=== PATIENT | female | born 1990 ===

== ENCOUNTER 2019-09-20 19:49 | Inpatient (IN) | payer MEDICAID, SELFPAY ==
[2019-09-20] MEDS ORDERED: Ibuprofen 800 MG TAB PO PRN (19:55)
[2019-09-20] MEDS ORDERED: Carboprost 250 MCG/ML AMP IM PRN (19:55)
[2019-09-20] MEDS ORDERED: Docusate 100 MG CAP PO PRN (19:55)
[2019-09-20] MEDS ORDERED: Misoprostol 200 MCG TAB PR PRN (19:55)
[2019-09-20] MEDS ORDERED: Lidocaine 1% (PF) 30 ML VIAL SC PRN (19:55)
[2019-09-20] MEDS ORDERED: Ondansetron PF 4 MG/2 ML Vial IVP PRN (19:55)
[2019-09-20] MEDS ORDERED: Promethazine HCl 25 MG/ML VIAL IM PRN (19:55)
[2019-09-20] MEDS ORDERED: Acetaminophen 500 MG TAB PO PRN (19:55)
[2019-09-20] MEDS ORDERED: hydrALAZINE 20 MG/ML VIAL SLOW IVP PRN ×2 (19:55→23:31)
[2019-09-20] MEDS ORDERED: Methylergonovine 0.2 MG/ML VIAL IM PRN (19:55)
[2019-09-20] MEDS ORDERED: Lactated Ringer's 1,000 ML IV SCH (20:00)
--- NOTE | 2019-09-20 20:05 | PDOC.FPROB ---
FMR OB H&P: HPI - History of Present Illness Chief Complaint: Contractions History of Present Illness: 29 yo @ 38.6 wks by LMP c/w 18.3 wk US who presents with contractions. She said the contractions started around 3 am this morning. She was seen by Dr. Negro at [facility] this morning and found to be a 4. She had one pressure in the 130s. She says the contractions are suprapubic and in her back and they began to worsen around 1630 this afternoon, so she decided to come to the hospital. Primary Care Physician: [facility]- Dr. Braun FMR OB H&P: Current - Care : 4 Para: 3 Gestational age: 38.6 Due date: 09/27/2019 Dating Criteria: LMP c/w 18.3 wk US - OB Labs Blood type: O RH: positive Antibody Screen: negative HIV: negative RPR: negative HepBsAg: negative Rubella: immune Gonorrhea: negative Chlamydia: negative 1 hour gtt: 97 GBS: negative H&H: 11. Platelets: 200 FMR OB H&P: History - Past Medical History PMH: None - OB History OB History: 3 - all term, 1st had mec, 3rd post date induction - NURSE OBGYN History NURSE OBGYN History: NILM Pap on 04/23/19 - Surgical History Sx History: None - Social History Social History: No alcohol, tobacco, or recreational drugs. - Family History Family History: None FMR OB H&P: Medications - Current Allergies/Adverse Reactions: Allergies Allergy/AdvReac Type Severity Reaction Status Date / Time No Known Allergies Allergy Verified 09/20/19 20:15 FMR OB H&P: ROS - Review of Systems General: denies: fever/chills Eyes: denies: vision changes ENT: denies: nasal congestion, rhinorrhea, sore throat Cardiovascular: denies: chest pain, edema Respiratory: denies: cough, congestion, shortness of breath Gastrointestinal: reports: abdominal pain (suprapubic pain). denies: nausea, vomiting, diarrhea, constipation Genitourinary (Female): reports: contractions. denies: dysuria, vaginal discharge, vaginal bleeding Musculoskeletal: denies: pain, tenderness Neurologic: denies: numbness, weakness Integumentary: denies: itching, rash Hematologic/Lymphatic: denies: prolonged or excessive bleeding, enlarged lymph nodes FMR OB H&P: Vital Signs - Maternal Vital signs: BP: 122/75, T: 98.2 - Heart Tones Baseline: 140 Variability: moderate Acceleration: present Deceleration: absent Category: category 1 [place] contractions every: 2-3 minutes FMR OB H&P: Physical Exam - Physical Exam General: NAD HEENT: normocephalic and atraumatic, PERRLA, EOMI, no scleral icterus Neck: supple, no LAD Heart: RRR, normal S1/S2, no murmurs/rubs/gallops, pulses present, no edema General: CTAB, no respiratory distress, good air movement, no rales/rhonchi, no wheezing, no retractions Abdomen: soft, gravid, non-tender, bowel sound present Musculoskeletal: pulses present, FROM in all four extremities Neurological: cranial nerves II through XII intact, no focal deficit Skin: no rash, no jaundice Lymphatic: no unusual bruising or bleeding, no purpura, no petechia Psychiatric: normal mood and affect - Pelvic Exam Vulva: normal hair distribution, no lesions, no discharge, no blood SVE: 7100/0 Presentation: MAMI FMR OB H&P: A/P - Problem List (1) Current Visit: Yes Status: Acute Disposition: 29 yo @ 38.6 wks by LMP c/w 18.3 wk US who presents with contractions. 1. Term @ 38.6 * Will admit for labor * SVE * Initial: 6100/-1 @ 1905 * 7100/0 * AROM @ 1955 with clear fluid * LR @ 125 * Pt does not desire epidural * strip: 140s, accels, mod variability * NPO with ice chips for delivery * Labs ordered Dispo: Continue serial cervical exams. Anticipate delivery soon. Discussion: Date/Time: 09/20/192002 This H&P was discussed with [] and [] who agree with the above documentation and plan. Addendum - Attending - Attending Attestation Date/Time: 09/20/192022 I personally evaluated the patient and discussed the management with Dr. Duff. I agree with the History, Examination, Assessment and Plan documented above.
[2019-09-20 20:19] VITALS: BMI 26.5
[2019-09-20 20:19] LABS: Hemoglobin 12.4 g/dL (12.0-16.0); Mean Corpuscular HGB CONC 33.6 g/dL (32.0-36.0); Mean Corpuscular Hemoglobin 25.8 pg (27.0-31.0); Mean Corpuscular Volume 76.8 fL (78.0-98.0); Mean Platelet Volume 12.4 fL (7.4-10.4); Platelet Count 146 thou/uL (130-400); RBC Distribution Width 15.2 % (11.5-14.5); Red Blood Cell (RBC) Count 4.79 mill/uL (4.20-5.40); White Blood Cell (WBC) Count 8.1 thou/uL (4.8-10.8)
[2019-09-20 20:57] LABS: Syphilis Antibody Nonreactive (Nonreactive); Syphilis Antibody Index 0.04 S/CO (<1.00 Non-Reactive)
[2019-09-20] MEDS: NS / Oxytocin 40 units/1000ml 1,000 ML IV PRN ×2 (21:20→23:31)
[2019-09-20 21:55] LABS: HBSAg Index 0.15 S/CO (0-0.99); Hep B Surf Ag Non-Reactive S/CO (NonReactive)
--- NOTE | 2019-09-20 23:15 | PDOC.OPDEL ---
OB Operative/Delivery Note Delivery Dr/Surgeon: Kade Rodríguez Brading Pre-Delivery Diagnosis: active labor Procedure/Post Delivery Dx: spontaneous vaginal delivery Weeks gestation: 38 Anesthesia: local - Findings A Sex: female - 1 min: 8 - 5 min: 9 - Additional Findings/Plan Placenta delivered: spontaneous Repaired Obstetrical Laceration: other (perineal lac) Estimated blood loss: 254 ml Compilations/Other Findings: Delivering Physician: Kade Rodríguez Attending: Boni Procedure: Spontaneous Vaginal Delivery Anesthesia: Local for Repair of 2nd degree lac EBL: 254 ml Pre-op Diagnosis: 1. Term intrauterine in labor Post-op Diagnosis: 1. Term intrauterine , delivered Indications: A 29 y/o female presents in active labor with contractions without loss of fluid or bleeding. Delivery Note: This is 29yo F @ 38.6 wks who delivered a viable femaleinfant at 2112 on 09/19. Following an uneventful antepartum course, a vigorous female was delivered over an intact perineum in the occipitoanterior position. Anterior Shoulder and then remainder of the body delivered. No nuchal cord. The head was held down and mouth and nares were bulb suctioned. Cord clamped after delayed cord clamping and cut and cord blood collected. Placenta delivered intact in the [place] presentation with a 3 vessel cord noted. Fundal massage was performed and the fundus was firm. The cervix and vagina were inspected and a 2nd degree perineal laceration was noted and repaired with 3-[address] in the usual fashion with good approximation and hemostasis after a local anesthetic 1% lidocaine was injected at site. Infant went to nursery in good condition for routine care. Apgars were 8 /9 at 1 & 5 minutes, respectively. Patient tolerated delivery well and went to after routine recovery/care. Post delivery plan: recovery in LICU Addendum - Attending - Attending Attestation Date/Time: 09/21/19 0740 I was present for the entire delivery. Tai
[2019-09-20] MEDS ORDERED: Bisacodyl 10 MG SUPP PR PRN (23:31)
[2019-09-20] MEDS ORDERED: NS / Oxytocin 40 units/1000ml 1,000 ML IV SCH (23:31)
[2019-09-20] MEDS ORDERED: Milk Of Magnesia 30 ML UDCUP PO PRN (23:31)
[2019-09-20] MEDS ORDERED: Lanolin Ointment 7 GM TUBE TOP PRN (23:31)
[2019-09-21] MEDS: Ibuprofen 800 MG TAB PO SCH ×4 (00:26→21:01)
--- NOTE | 2019-09-21 07:12 | PDOC.OBPPN ---
FMR OB PN: Subj - Interval History Day: 1 29 y/o ->4004 @ 38.6 WGA delivered via @ 2111 on 09/20/19. Doing well. She has ambulated to the bathroom. She is tolerating PO and denies N /V. She reports abd pain improved with ibuprofen and has minimal lochia. Denies fever, chills. FMR OB PN: Obj - Maternal Vital signs: BP: 112/55 HR: 98 RR: 18 Tmax: 98.2 Pox: 98% on RA Wt: 61kg - Urine output I&O: 09/20/19 09/21/19 09/22/19 06:59 06:59 06:59 Output Total 304 Balance -304 FMR OB PN: Exam - Physical Exam General: NAD, awake, alert and oriented HEENT: normocephalic and atraumatic, MMM, conjunctiva clear, grossly normal hearing Neck: supple, no LAD Heart: RRR, normal S1/S2, no murmurs/rubs/gallops, pulses present, no edema General: CTAB, no respiratory distress, good air movement, no rales/rhonchi, no wheezing Abdomen: soft, fundus(cm) (firm below umbilicus) Musculoskeletal: pulses present Neurological: no focal deficit Skin: good tugor Lymphatic: no unusual bruising or bleeding, no purpura Psychiatric: intact recent and remote memory, good judgement and insight FMR OB PN: Data - Labs Lab results: Laboratory Results - last 24 hr 09/20/19 09/20/19 09/20/19 20:09 20:09 20:09 WBC 8.1 RBC 4.79 Hgb 12.4 Hct 36.8 MCV 76.8 L MCH 25.8 L MCHC 33.6 RDW 15.2 H Plt Count 146 MPV 12.4 H Syphilis IgG/IgM Ab Nonreactive Hep Bs Antigen Blood Type O POSITIVE Antibody Screen NEGATIVE 09/20/19 09/20/19 20:10 22:23 WBC RBC Hgb Hct MCV MCH MCHC RDW Plt Count MPV Syphilis IgG/IgM Ab Hep Bs Antigen Non-Reactive Blood Type O POSITIVE Antibody Screen FMR OB PN: A/P - Problem List (1) Term delivered Current Visit: Yes Status: Acute Code(s): O80 - ENCOUNTER FOR FULL-TERM UNCOMPLICATED DELIVERY Comment: Continue routine care -PNV -Ibuprofen for pain -Encourage ambulation -Encourage breast feeding Disposition: Continue routine care and anticipate d/c home tomorrow Discussion: Date/Time: 09/21/19 0711 This H&P was discussed with Dr. Plata who agrees with the above documentation and plan. Signature: Tami Braun MD, PGY-3 Addendum - Attending - Attending Attestation Date/Time: 09/21/19 0750 I personally evaluated the patient and discussed the management with Dr. Braun. I agree with the History, Examination, Assessment and Plan documented above.
[2019-09-21] MEDS ORDERED: Benzocaine-Menthol 82.5 ML CAN TOP PRN (07:45)
[2019-09-21] MEDS: Docusate Calcium (SURFAK) 240 MG CAP PO SCH ×2 (08:02→21:01)
[2019-09-21] MEDS: Prenatal Vitamin 1 TAB PO SCH (08:03)
[2019-09-21] MEDS ORDERED: Adacel (T-DAP) 0.5 ML SYRINGE IM ONE (09:00)
[2019-09-21] MEDS: Ferrous Sulfate 325 MG TAB PO SCH ×2 (10:28→14:37)
[2019-09-22] MEDS: Ibuprofen 800 MG TAB PO SCH (05:10)
--- NOTE | 2019-09-22 05:59 | PDOC.PP ---
Post Progress Note Post Day #: 2 Subjective: Doing well, no concerns. PO intake tolerated: yes Flatus: yes Ambulation: yes Vital Signs (12 hours) Temp Pulse Resp BP Pulse Ox 09/21/19 20:20 98.6 F 88 16 107/58 L 98 Weight Weight 61.689 kg - Physical Examination General: NAD Cardiovascular: no m/r/g, RRR Respiratory: clear to auscultation bilaterally, non-labored breathing Abdominal: + bowel sounds, lochia, no distention, appropriately TTP Neurological: no gross focal deficits Psychiatric: A&Ox3, normal affect Result Diagrams: 09/20/19 20:09 Additional Labs: Post Labs Blood Type O POSITIVE 09/20/19 22:23 Hep Bs Antigen Non-Reactive S/CO (NonReactive) 09/20/19 20:10 (1) Term delivered Code(s): O80 - ENCOUNTER FOR FULL-TERM UNCOMPLICATED DELIVERY Status: Acute Comment: Continue routine care -PNV -Ibuprofen for pain -Encourage ambulation -Encourage breast feeding - Assessment/Plan 1. PPD #1 -PNV -Ibuprofen for pain -Encourage ambulation -Encourage breast feeding -Will follow up @ [facility] in 2 weeks. Likely d/c home today.
[2019-09-22 08:37] VITALS: BP 113/56; TEMP 98
[2019-09-22] MEDS: Ferrous Sulfate 325 MG TAB PO SCH (09:01)
[2019-09-22] MEDS: Prenatal Vitamin 1 TAB PO SCH (09:08)
[2019-09-22] MEDS: Docusate Calcium (SURFAK) 240 MG CAP PO SCH (09:08)
== END 2019-09-22 13:00 | disposition home or self-care (01) | DRG 807 ==
LOC: L&D-LIB 19:49 → 3SW 09-21 00:08
PROVIDERS: ADMIT Obstetrics & Gynecology; ATTEND Obstetrics & Gynecology
PROC: 10E0XZZ Delivery of Products of Conception, External Approach (ICD-10-PCS; principal; 2019-09-21)
PROC: 0KQM0ZZ Repair Perineum Muscle, Open Approach (ICD-10-PCS; 2019-09-21)
PROC: 10907ZC Drainage of Amniotic Fluid, Therapeutic from Products of Conception, Via Natural or Artificial Opening (ICD-10-PCS; 2019-09-21)
DX: O70.1 Second degree perineal laceration during delivery (principal); Z37.0 Single live birth; Z3A.38 38 weeks gestation of pregnancy
CPT/HCPCS: 36415; 85027; 86780; 86850; 86900; 86901; 87340; 99285